=== PATIENT | male | born 1990 | race Caucasian/White ===

== ENCOUNTER 2017-02-27 07:55 | Day surgery (SDC) | payer BC ==
[~2017-02-27 07:55] MED LIST: ATIVAN PO; CELEXA20 M2 PO; IBUPROFEN200 M2 PO; NO MEDICATION; PERCOCET 5-3251 EACH PO; STOOL SOFTENER1 EAC4 PO
[2017-02-27 08:46] LABS: BASO % 0.8 % (0-2); EOS % 8.2 % (0-7); EOSINOPHIL ABSOLUTE COUNT 0.3 tho/cmm (0.0-0.7); HCT-HEMATOCRIT 35.2 % (36.0-53.5); HGB-HEMOGLOBIN 12.1 gm/dl (13.5-17.0); LYMPH % 38.1 % (20-45); LYMPH ABSOLUTE COUNT 1.4 tho/cmm (0.8-4.5); MCHC MEAN CORPUSCULAR HGB CONC 34.4 % (32.0-36.0); MCV (MEAN CELL VOLUME) 93.1 fl (82.0-96.0); MONO % 7.1 % (0-12); MONOCYTE ABSOLUTE COUNT 0.3 tho/cmm (0.0-1.2); NEUTROPHIL ABSOLUTE COUNT 1.7 tho/cmm (1.6-8.0); NEUTROPHIL-AUTOMATED 1.7 tho/cmm (1.6-8.0); NEUTROPHILS % 45.8 % (40-80); PLATELET COUNT 109 tho/cmm (150-450); RED BLOOD COUNT 3.78 mil/cmm (4.40-5.70); RED CELL DISTRIBUTION WIDTH 12.7 % (12.4-16.4); WHITE BLOOD COUNT 3.7 tho/cmm (4.0-10.0)
[2017-02-27 08:52] LABS: PROTHROMBIN TIME 11.2 SECONDS (9.0-13.6)
== END 2017-02-27 13:03 ==
LOC: SHSB 07:55
PROVIDERS: Radiology Diagnostic Radiology
PROC: 0JPT3XZ Removal of Tunneled Vascular Access Device from Trunk Subcutaneous Tissue and Fascia, Percutaneous Approach (ICD-10-PCS; principal; 2017-02-27)
DX: Z45.2 Encounter for adjustment and management of vascular access device (principal); C62.11 Malignant neoplasm of descended right testis
CPT/HCPCS: J2250; J3010; J7030